=== PATIENT | female | born 1955 | race Caucasian/White ===

== ENCOUNTER 2021-01-19 18:46 | Emergency (ER) | payer MEDICARE, MEDICAID ==
[~2021-01-19] VITALS: Ht 160 cm; Wt 90.9 kg
[2021-01-19 19:06] VITALS: BP 125/86
[2021-01-19 19:30] LABS: BASOPHILS % (AUTO) 0.6 % (0-1); EOSINOPHILS # (AUTO) 0.1 X10'3 (0-0.9); EOSINOPHILS % (AUTO) 1.6 % (0-6); HEMATOCRIT 43.3 % (35.0-45.0); LYMPHOCYTES # (AUTO) 2.5 X10'3 (1.1-4.8); LYMPHOCYTES % (AUTO) 41.9 % (21-51); MEAN CORPUSCULAR HEMOGLOBIN 31.7 PG (27.0-31.0); MEAN CORPUSCULAR HGB CONC 34.7 g/dL (33.0-36.5); MEAN CORPUSCULAR VOLUME 91.3 FL (78-98); MEAN PLATELET VOLUME 8.4 FL (7.4-10.4); MONOCYTES # (AUTO) 0.3 X10'3 (0-0.9); MONOCYTES % (AUTO) 5.6 % (2-12); NEUTROPHILS # (AUTO) 2.9 X10'3 (1.8-7.7); NEUTROPHILS % (AUTO) 50.3 % (42-75); PLATELET COUNT 167 X10'3 (140-440); RED BLOOD COUNT 4.74 X10'6 (4.20-5.60); RED CELL DISTRIBUTION WIDTH 12.7 % (11.5-14.5); WHITE BLOOD COUNT 5.9 X10'3 (4.5-11.0)
--- NOTE | 2021-01-19 19:32 | NUR ---
Pt has been vaccinated for covid, but tested positive for covid in early December. Pt has had mild symptoms
[2021-01-19 19:46] LABS: D-DIMER < 0.19 MG/L FEU (0-0.50)
[2021-01-19 19:49] LABS: ALANINE AMINOTRANSFERASE 40 U/L (12-78); ALBUMIN/GLOBULIN RATIO 1.3 (1.1-1.5); ALKALINE PHOSPHATASE 53 IU/L (46-116); ANION GAP 10 (8-16); ASPARTATE AMINO TRANSFERASE 19 U/L (10-37); BILIRUBIN,TOTAL 0.7 MG/DL (0.1-1.0); BLOOD UREA NITROGEN 24 MG/DL (7-18); BUN/CREATININE RATIO 23.3 (6.6-38.0); CALCIUM 8.9 MG/DL (8.5-10.1); CHLORIDE 108 MMOL/L (99-107); CREATINE KINASE 42 U/L (26-192); CREATININE 1.03 MG/DL (0.40-0.90); GLUCOSE 90 MG/DL (70-104); MAGNESIUM 1.9 MG/DL (1.5-2.4); POTASSIUM 3.7 MMOL/L (3.5-5.1); SODIUM 144 MMOL/L (135-145); TOTAL CARBON DIOXIDE 25.6 MMOL/L (24-32); TOTAL PROTEIN 7.1 G/DL (6.4-8.2); eGFR 54 ML/MIN
[2021-01-19 20:05] LABS: C-REACTIVE PROTEIN < 0.05 MG/DL (0.0-0.5)
[2021-01-19] MEDS ORDERED: meclizine 12.5mg tablet PO ONE (20:30)
[2021-01-19] MEDS ORDERED: MECL-159 PO (20:39)
[2021-01-19 21:24] LABS: UA COLLECTION TYPE CLN CATCH MIDSTREAM
[2021-01-19 21:25] LABS: CLARITY,URINE CLEAR (Clear); COLOR,URINE YELLOW (Yellow); GLUCOSE, URINE NEGATIVE (Neg); KETONES,URINE NEGATIVE (Neg); LEUKOCYTE ESTERASE ,URINE NEGATIVE (Neg); NITRITES, URINE NEGATIVE (Neg); OCCULT BLOOD,URINE NEGATIVE (Neg); PROTEIN,URINE NEGATIVE (Neg); UROBILINOGEN,URINE 0.2 E.U/dL (0.2-1.0)
== END 2021-01-19 20:56 | disposition home or self-care (01) ==
LOC: ER 18:49
DX: R42 Dizziness and giddiness (principal); R06.02 Shortness of breath; R05.9 Cough, unspecified; R53.1 Weakness; Z86.16 Personal history of COVID-19; Z79.899 Other long term (current) drug therapy; Z88.2 Allergy status to sulfonamides; Z88.1 Allergy status to other antibiotic agents
CPT/HCPCS: 36415; 71045; 80053; 81003; 82550; 83735; 84145; 85025; 85379; 86140; 93005; 99285; J8597

== ENCOUNTER 2023-08-03 11:06 | Emergency (ER) | payer MEDICARE, MEDICAID ==
[~2023-08-03] VITALS: Ht 160 cm; Wt 85.0 kg
[~2023-08-03 11:06] MED LIST: MECL-302 PO
[2023-08-03 11:24] VITALS: TEMP 97.8
[2023-08-03 12:21] VITALS: BP 124/70; PULSE 77; O2SAT 97
[2023-08-03 12:34] LABS: BILIRUBIN,URINE NEGATIVE (Neg); CLARITY,URINE CLOUDY (Clear); COLOR,URINE YELLOW (Yellow); GLUCOSE, URINE NEGATIVE (Neg); KETONES,URINE NEGATIVE (Neg); LEUKOCYTE ESTERASE ,URINE NEGATIVE (Neg); NITRITES, URINE NEGATIVE (Neg); OCCULT BLOOD,URINE LARGE (Neg); PH,URINE 5.5 (4.8-8.0); PROTEIN,URINE TRACE mg/dl (Neg); UROBILINOGEN,URINE 0.2 E.U/dL (0.2-1.0)
[2023-08-03 12:39] LABS: UA COLLECTION TYPE CLN CATCH MIDSTREAM
[2023-08-03 12:40] LABS: MUCUS STRANDS FEW /LPF (Neg); RBC,URINE TNTC /HPF (0-2); SQUAMOUS EPITHELIAL CELL,UR MANY /LPF (FEW)
[2023-08-03 12:42] LABS: BACTERIA,URINE FEW /HPF (Neg); CAL OXALATE CRYSTALS 4+ /HPF (NEGATIVE); WBC,URINE 0-4 /HPF (0-4)
[2023-08-03 13:12] LABS: BASOPHILS % (AUTO) 0.7 % (0-1); EOSINOPHILS % (AUTO) 0.6 % (0-6); HEMOGLOBIN 14.6 g/dl (12.0-16.0); LYMPHOCYTES # (AUTO) 1.2 X10'3 (1.1-4.8); LYMPHOCYTES % (AUTO) 19.4 % (21-51); MEAN CORPUSCULAR HEMOGLOBIN 31.5 PG (27.0-31.0); MEAN CORPUSCULAR VOLUME 92.5 FL (78-98); MEAN PLATELET VOLUME 9.2 FL (7.4-10.4); MONOCYTES # (AUTO) 0.2 X10'3 (0-0.9); MONOCYTES % (AUTO) 3.9 % (2-12); NEUTROPHILS # (AUTO) 4.7 X10'3 (1.8-7.7); NEUTROPHILS % (AUTO) 75.4 % (42-75); PLATELET COUNT 188 X10'3 (140-440); RED BLOOD COUNT 4.65 X10'6 (4.20-5.60); RED CELL DISTRIBUTION WIDTH 12.5 % (11.5-14.5); WHITE BLOOD COUNT 6.3 X10'3 (4.5-11.0)
[2023-08-03 13:27] LABS: ALANINE AMINOTRANSFERASE 34 U/L (12-78); ALBUMIN 4.1 G/DL (3.4-5.0); ALBUMIN/GLOBULIN RATIO 1.4 (1.1-1.5); ALKALINE PHOSPHATASE 63 IU/L (46-116); ANION GAP 9 (8-16); ASPARTATE AMINO TRANSFERASE 19 U/L (10-37); BILIRUBIN,TOTAL 0.5 MG/DL (0.1-1.0); BLOOD UREA NITROGEN 19 MG/DL (7-18); BUN/CREATININE RATIO 22.1 (10.0-20.0); CHLORIDE 105 MMOL/L (99-107); CREATININE 0.86 MG/DL (0.40-0.90); GLUCOSE 150 MG/DL (70-104); LIPASE 37 U/L (16-77); POTASSIUM 3.5 MMOL/L (3.5-5.1); SODIUM 140 MMOL/L (135-145); TOTAL CARBON DIOXIDE 26.3 MMOL/L (24-32); TOTAL PROTEIN 7.1 G/DL (6.4-8.2); eCRCL 51 ML/MIN; eGFR 65 ML/MIN
[2023-08-03 13:34] LABS: APTT 20 SECONDS (22-32); PROTHROMBIN TIME 10.6 SECONDS (9.0-12.0)
[2023-08-03] MEDS ORDERED: ONDA4TAB12 PO (13:58)
[2023-08-03] MEDS ORDERED: HYDR-3965 PO (13:58)
[2023-08-03] MEDS ORDERED: ketorolac trometh inj. 60 MG/2 ML VIAL IM ONE (14:00)
[2023-08-03 14:30] VITALS: RESP 16
[2023-08-03] MEDS: ketorolac tromethamine 15mg/ml inj. IM ONE (14:30)
== END 2023-08-03 14:41 | disposition home or self-care (01) ==
LOC: ER 11:06
DX: N20.0 Calculus of kidney (principal); Z88.2 Allergy status to sulfonamides; Z88.8 Allergy status to other drugs, medicaments and biological substances
CPT/HCPCS: 36415; 74176; 80053; 81001; 83605; 83690; 85025; 85610; 85730; 87040; 93005; 96372; 99285; J1885